=== PATIENT | female | born 1990 | race Asian ===

== ENCOUNTER 2016-04-06 17:43 | Emergency (ER) | payer MEDICAID, OTHER ==
[~2016-04-06] VITALS: Wt 54.6 kg
[~2016-04-06 17:43] MED LIST: LORA1TAB PO
--- NOTE | 2016-04-06 19:51 | ERD ---
ER Documentation Chief Complaint Date/Time DATE: 04/06/16 TIME: 19:49 Chief Complaint VAG BLEED EARLY FOR THE PAST FEW DAYS. NO PAIN. NO DYSURIA HPI This is a female with history of anxiety presenting to the emergency room complaining of vaginal spotting for the past few days. Patient states that it is brown to bright red discharge, it is minimal and does not soil a pad. Patient denies any pelvic pain, fevers, dysuria. Patient states that her last menstrual period started on the lasted for about a week. Patient states that she has an [facility]OW[facility] Dr. Mora who she followed up with today in which they referred her here for a full workup. ROS All systems reviewed and are negative except as per history of present illness. Medications Home Meds Active Scripts Lorazepam* (Lorazepam*) 1 Mg Tablet, 1 MG PO Q8H Y for ANXIETY, #10 TAB Prov:ELIOT ADAIR PA-C 11/04/15 Lorazepam* (Lorazepam*) 1 Mg Tablet, 1 MG PO DAILY for ANXIETY, #10 TAB 0 Refills Prov:MERRY THRASHER PA-C 08/15/15 Allergies Allergies: Coded Allergies: No Known Allergy (Unverified , 05/24/15) PMhx/Soc Medical and Surgical Hx: pt denies Medical Hx History of Surgery: No Anesthesia Reaction: No Hx Neurological Disorder: No Hx Respiratory Disorders: No Hx Cardiac Disorders: No Hx Psychiatric Problems: Yes (Anxiety) Hx Miscellaneous Medical Probl: No Hx Alcohol Use: Yes Hx Substance Use: No Hx Tobacco Use: No Smoking Status: Never smoker Physical Exam Vitals Vital Signs Date Time Temp Pulse Resp B/P Pulse Ox O2 Delivery O2 Flow Rate FiO2 04/06/16 21:32 98.2 64 16 107/67 100 Room Air 04/06/16 17:46 98.8 80 20 125/56 99 Physical Exam General: well-developed/well-nourished, in no apparent distress, non-toxic appearing HENT: NC/AT Eyes: Conjunctiva normal Neck: Supple Pulm: CTA bilaterally, normal breathing CV: Normal S1S2 GI: Soft, non-distended, normal bowel sounds, nontender Back: No midline tenderness, no masses, No CVAT Ext: No clubbing, cyanosis, or edema Neuro: Alert and orientated Skin: intact, normal turgor Psych: Clinically anxious Result Diagram: 04/06/16 1930 Results 24 hrs Laboratory Tests Test 04/06/16 19:30 04/06/16 20:56 Basophils # 0.010^3/ul Basophils % 0.5% Beta HCG, Quantitative 249.8mIU/ml Eosinophils # 0.110^3/ul Eosinophils % 1.2% Hematocrit 37.1% Hemoglobin 12.6g/dl Lymphocytes # 1.810^3/ul Lymphocytes % 30.9% Mean Corpuscular Hemoglobin 30.6pg Mean Corpuscular Hemoglobin Concent 33.9g/dl Mean Corpuscular Volume 90.5fl Mean Platelet Volume 7.4fl Monocytes # 0.310^3/ul Monocytes % 6.0% Neutrophils # 3.510^3/ul Neutrophils % 61.4% Nucleated Red Blood Cells # 0.010^3/ul Nucleated Red Blood Cells % 0.0/100WBC Platelet Count 55813^3/UL Red Blood Count 4.1010^6/ul Red Cell Distribution Width 13.9% White Blood Count 5.710^3/ul Urine Bacteria MODERATE Urine Bilirubin NEGATIVE Urine Clarity SLIGHTLY CLOUDY Urine Color LT. YELLOW Urine Glucose NEGATIVE% Urine Hemoglobin 3+ Urine Ketones NEGATIVE Urine Leukocyte Esterase NEGATIVE Urine Microscopic RBC 0-2/HPF Urine Microscopic WBC 0-2/HPF Urine Nitrite NEGATIVE Urine Specific Webber 1.020 Urine Squamous Epithelial Cells MODERATE Urine Total Protein NEGATIVE Urine Urobilinogen 0.2 E.U./dL Urine pH 7.0 Procedures/MDM This is a female with history of anxiety presenting to the emergency room complaining of vaginal spotting without any pelvic pain or the past few days. Patient states that her last menstrual period started on March 12, patient had a positive urinary test at the [facility] clinic and she was referred here for further evaluation mentioned. Lab work was drawn. CBC did not show any evidence of leukocytosis or anemia. Beta hCG was 250. UA did not show any evidence of hemoglobin or urinary tract infection. OB ultrasound was done and radiologist stated: No intrauterine seen. Trace fluid in the endocervical canal. Small amount of free fluid in cul-de-sac. Left ovary not seen. No ectopic seen. Differential diagnosis includes early intrauterine , spontaneous and ectopic . Correlation with serial quantitative beta HCGs and follow-up ultrasound is recommended. My differentials include but not limited to early or spontaneous . Low suspicion for ectopic , molar , ovarian torsion , appendicitis, cholecystitis, pancreatitis, obstruction, pyelonephritis due to diagnostic testing and physical examination. Disposition: hemodynamically stable. Diagnostic testing has been given to patient, I have discussed with patient that she needs to follow-up in 2 days to trend her beta-hCG levels to see if her is viable. Discussed to follow-up with an OB-PATTERN MAKER. Discussed to return to the ED for any worsening signs or symptoms. Patient understood and agreed with this plan. Departure Diagnosis: Primary Impression: Vaginal bleeding in patient at less than 20 weeks gestation Condition: Stable MANUEL GAUTHIER PA-C Apr 06, 2016 19:51
[2016-04-06 19:52] LABS: BASOPHILS % 0.5 % (0.0-2.0); EOSINOPHILS # 0.1 10^3/ul (0.0-0.5); EOSINOPHILS % 1.2 % (0.0-7.0); HEMATOCRIT 37.1 % (37.0-47.0); HEMOGLOBIN 12.6 g/dl (12.0-16.0); LYMPHOCYTES # 1.8 10^3/ul (0.8-2.9); LYMPHOCYTES % 30.9 % (15.0-51.0); MEAN CORPUSCULAR HEMOGLOBIN 30.6 pg (29.0-33.0); MEAN CORPUSCULAR HGB CONC 33.9 g/dl (32.0-37.0); MEAN CORPUSCULAR VOLUME 90.5 fl (82.0-101.0); MEAN PLATELET VOLUME 7.4 fl (7.4-10.4); MONOCYTE # 0.3 10^3/ul (0.3-0.9); NEUTROPHIL # 3.5 10^3/ul (1.6-7.5); NEUTROPHILS % 61.4 % (39.0-77.0); PLATELET COUNT 234 10^3/UL (140-440); RED CELL DISTRIBUTION WIDTH 13.9 % (11.5-14.5); UNCORRECTED WBC 5.7 10^3/ul (4.8-10.8); WHITE BLOOD COUNT 5.7 10^3/ul (4.8-10.8)
[2016-04-06 19:53] LABS: CONDITION 1
--- NOTE | 2016-04-06 20:05 | RADRPT ---
PROCEDURE: US OB. CLINICAL INDICATION: . Vaginal bleeding, spotting per patient. Clinical estimated gestat ional age is 3 weeks 4 days with estimated date of delivery 12/17/2016 TECHNIQUE: Transabdominal and transvaginal imaging of the gravid uterus was performed. Images are reviewed on a high-resolution PACS workstation. COMPARISON: None available FINDINGS: No intrauterine seen. The thickness of the endometrium equals 4.7 mm. Nabothian cysts in cervix. Trace fluid in the endocervical canal. The right ovary measures 3 x 1.7 x 1.6 cm and is unremarkable. The left ovary is not seen. No adnexal mass is seen. Small amount of free fluid in c ul-de-sac. IMPRESSION: No intrauterine seen. Trace fluid in the endocervical canal. Small amount of free fluid in cul-de-sac. Left ovary not seen. No ectopic seen. Differential diagnosis includes early intrauterine , spontaneous and ectopic . Correlation with serial quantit ative beta HCGs and follow-up ultrasound is recommended. RPTAT: HJES .De Perez MD, MD Date Time Electronically viewed and signed by .De Perez MD, MD on 04/06/2016 20:05 .S/
[2016-04-06 21:13] LABS: ADD UMIC YES; URINE BILIRUBIN (Dip) NEGATIVE (NEGATIVE); URINE BLOOD (Dip) 3+ (NEGATIVE); URINE COLOR LT. YELLOW (YELLOW); URINE GLUCOSE (Dip) NEGATIVE (NEGATIVE); URINE KETONES (Dip) NEGATIVE (NEGATIVE); URINE LEUKOCYTE ESTERASE (Dip) NEGATIVE (NEGATIVE); URINE NITRITE (Dip) NEGATIVE (NEGATIVE); URINE TOTAL PROTEIN (Dip) NEGATIVE (NEGATIVE); URINE UROBILINOGEN (Dip) 0.2 E.U./dL (0.1-1.0)
[2016-04-06 21:20] LABS: SQUAMOUS EPITHELIAL CELL,UR MODERATE; URINE RBCS 0-2 /HPF (0)
[2016-04-06 21:21] LABS: BACTERIA,URINE MODERATE
[2016-04-06 21:32] VITALS: BP 107/67; PULSE 64; RESP 16; TEMP 98.2
== END 2016-04-06 21:33 | disposition left against medical advice (07) ==
LOC: FTE 17:43
DX: O20.9 Hemorrhage in early pregnancy, unspecified (principal); Z3A.00 Weeks of gestation of pregnancy not specified
CPT/HCPCS: 36415; 76801; 76817; 81001; 84702; 85025; 86900; 86901; Z7502; 81003

== ENCOUNTER 2016-04-13 23:36 | Emergency (ER) | payer MEDICAID ==
[~2016-04-13] VITALS: Ht 170.2 cm; Wt 52.4 kg
[2016-04-13 23:39] VITALS: Ht 170.2 cm; Wt 52.4 kg
--- NOTE | 2016-04-14 02:03 | ERD ---
ER Documentation Chief Complaint Date/Time DATE: 04/14/16 TIME: 02:01 Chief Complaint 3-4 WKS . HERE FOR VAG BLEED 1 WK AGO. FOLLOW UP LABS HPI 26-year-old female presents here in emergency department for complaints of vaginal spotting started again today. Patient was seen here in emergency department one week ago, was told to possibly having early or early miscarriage, the bleeding improved so she did not return in 2 days, now she is having spotting again. Last menstruation was 03/12/2016. 2 para 1 0. Patient denies any flank pain. Patient denies any fever or chills. Patient denies any abdominal pain. ROS All systems reviewed and are negative except as per history of present illness. Medications Home Meds Active Scripts Lorazepam* (Lorazepam*) 1 Mg Tablet, 1 MG PO Q8H Y for ANXIETY, #10 TAB Prov:ELIOT ADAIR PA-C 11/04/15 Lorazepam* (Lorazepam*) 1 Mg Tablet, 1 MG PO DAILY for ANXIETY, #10 TAB 0 Refills Prov:MERRY THRASHER PA-C 08/15/15 Allergies Allergies: Coded Allergies: No Known Allergy (Unverified , 05/24/15) PMhx/Soc History of Surgery: No Anesthesia Reaction: No Hx Neurological Disorder: No Hx Respiratory Disorders: No Hx Cardiac Disorders: No Hx Psychiatric Problems: Yes (Anxiety) Hx Miscellaneous Medical Probl: No Hx Alcohol Use: Yes Hx Substance Use: No Hx Tobacco Use: No FmHx Family History: No coronary disease, No diabetes, No other Physical Exam Vitals Vital Signs Date Time Temp Pulse Resp B/P Pulse Ox O2 Delivery O2 Flow Rate FiO2 04/13/16 23:39 97.0 70 16 110/70 99 Physical Exam GENERAL: The patient is well developed and appropriate for usual state of health, in no apparent distress. CHEST: Clear to auscultation bilaterally. There are no rales, wheezes or rhonchi. HEART: Regular rate and rhythm. No murmurs, clicks, rubs or gallops. No S3 or S4. ABDOMEN: Soft, nontender and nondistended. Good bowel sounds. No rebound or guarding. No gross peritonitis. No gross organomegaly or masses. No Neville sign or McBurney point tenderness. BACK: No midline or flank tenderness. EXTREMITIES: Equal pulses bilaterally. There is no peripheral clubbing, cyanosis or edema. No focal swelling or erythema. Full range of motion. Grossly neurovascularly intact. NEURO: Alert and oriented. Cranial nerves 2-12 intact. Motor strength in all 4 extremities with 5/5 strength. Sensation grossly intact. Normal speech and gait. SKIN: There is no apparent rash or petechia. The skin is warm and dry. HEMATOLOGIC AND LYMPHATIC: There is no evidence of excessive bruising or lymphedema. No gross cervical, axillary, or inguinal lymphadenopathy. Vaginal: Refused. Result Diagram: 04/14/16 0221 Results 24 hrs Laboratory Tests Test 04/14/16 02:21 Basophils # 0.010^3/ul Basophils % 0.5% Beta HCG, Quantitative 48.7mIU/ml Eosinophils # 0.210^3/ul Eosinophils % 2.8% Hematocrit 38.3% Hemoglobin 12.9g/dl Lymphocytes # 2.710^3/ul Lymphocytes % 44.4% Mean Corpuscular Hemoglobin 30.2pg Mean Corpuscular Hemoglobin Concent 33.7g/dl Mean Corpuscular Volume 89.7fl Mean Platelet Volume 9.7fl Monocytes # 0.410^3/ul Monocytes % 7.3% Neutrophils # 2.710^3/ul Neutrophils % 44.7% Nucleated Red Blood Cells # 0.010^3/ul Nucleated Red Blood Cells % 0.0/100WBC Platelet Count 23524^3/UL Red Blood Count 4.2710^6/ul Red Cell Distribution Width 12.8% Urine Bilirubin NEGATIVE Urine Clarity CLEAR Urine Color LT. YELLOW Urine Glucose NEGATIVE% Urine Hemoglobin NEGATIVE Urine Ketones NEGATIVE Urine Leukocyte Esterase NEGATIVE Urine Nitrite NEGATIVE Urine Specific Maynard 1.020 Urine Total Protein NEGATIVE Urine Urobilinogen 0.2 E.U./dL Urine pH 7.0 White Blood Count 6.010^3/ul PROCEDURE: ULTRASOUND PELVIS - TRANSABDOMINAL ONLY CLINICAL INDICATION: 26-year-old female with spotting. TECHNIQUE: Multiple sonographic images of the pelvis were obtained utilizing a transabdominal technique. The the patient refused endovaginal imaging. The images were reviewed on a PACS workstation. COMPARISON: None. FINDINGS: The uterus is visualized and measures 3.3 x 1.9 x 2.0 cm. The endometrial echo complex is unremarkable however was not measured. There is no sonographic evidence for an intrauterine gestation. There is no evidence for free fluid. The right ovary has a normal echotexture and measures 3.4 x 1.7 x 2.2 cm. The left ovary has a normal echotexture and measures 3.3 x 1.9 x 2.0 cm. There is flow within the ovaries bilaterally. No adnexal masses are noted. IMPRESSION: No sonographic evidence for an intrauterine gestation. If the patient has a positive test, an ectopic cannot be excluded. Clinical correlation is necessary. .Ruben Alves MD, Date Time Electronically viewed and signed by .Ruben Alves MD, on 04/14/2016 04:08 .M/ CC: CHAKA DAVE CABLE TECHNICIAN Procedures/MDM Medical Decision Making: Patients vaginal bleeding is most likely consistent of possible spontaneous . Patient does not show any evidence of hypovolemic shock. Patients hemoglobin and hematocrit is stable. There is low suspicion for ectopic . BRUCE results show no viable BetaHCG Quantitative is very low consistent to miscarriage The patient is Rh+, does not need RhoGAM this time. There is no signs of symptoms of dehydration. There is low suspicion for sepsis. Patient appears well and is hemodynamically stable. Disposition: Eloped prior to ultrasound. Condition: Stable Instructions: Patient is advised to do bed rest, avoid heavy lifting, and avoid having sex until cleared by OB doctor. Patient is advised to follow up with OB doctor or here at the ER in 48 hours for reevaluation of symptoms, repeat beta HCG quantitative and ultrasound. Patient is advised that is symptoms are worst, severe bleeding, dizziness, severe abdominal pain, fever, worst signs and symptoms to return to the emergency department immediately. Departure Diagnosis: Primary Impression: Spontaneous Condition: Stable Additional Instructions: Patient is advised to do bed rest, avoid heavy lifting, and avoid having sex until cleared by OB doctor. Patient is advised to follow up with OB doctor or here at the ER in 48 hours for reevaluation of symptoms, repeat beta HCG quantitative and ultrasound. Patient is advised that is symptoms are worst, severe bleeding, dizziness, severe abdominal pain, fever, worst signs and symptoms to return to the emergency department immediately. CHAKA DAVE NP Apr 14, 2016 02:03
[2016-04-14 02:33] LABS: ADD SCAN DIFF NO
[2016-04-14 02:40] LABS: ADD UMIC NO; URINE BILIRUBIN (Dip) NEGATIVE (NEGATIVE); URINE BLOOD (Dip) NEGATIVE (NEGATIVE); URINE COLOR LT. YELLOW (YELLOW); URINE GLUCOSE (Dip) NEGATIVE (NEGATIVE); URINE KETONES (Dip) NEGATIVE (NEGATIVE); URINE LEUKOCYTE ESTERASE (Dip) NEGATIVE (NEGATIVE); URINE NITRITE (Dip) NEGATIVE (NEGATIVE); URINE TOTAL PROTEIN (Dip) NEGATIVE (NEGATIVE); URINE UROBILINOGEN (Dip) 0.2 E.U./dL (0.1-1.0)
[2016-04-14 02:42] LABS: BASOPHILS % 0.5 % (0.0-2.0); EOSINOPHILS # 0.2 10^3/ul (0.0-0.5); EOSINOPHILS % 2.8 % (0.0-7.0); HEMATOCRIT 38.3 % (37.0-47.0); HEMOGLOBIN 12.9 g/dl (12.0-16.0); LYMPHOCYTES # 2.7 10^3/ul (0.8-2.9); LYMPHOCYTES % 44.4 % (15.0-51.0); MEAN CORPUSCULAR HEMOGLOBIN 30.2 pg (29.0-33.0); MEAN CORPUSCULAR HGB CONC 33.7 g/dl (32.0-37.0); MEAN CORPUSCULAR VOLUME 89.7 fl (82.0-101.0); MEAN PLATELET VOLUME 9.7 fl (7.4-10.4); MONOCYTE # 0.4 10^3/ul (0.3-0.9); MONOCYTES % 7.3 % (0.0-11.0); NEUTROPHIL # 2.7 10^3/ul (1.6-7.5); NEUTROPHILS % 44.7 % (39.0-77.0); PLATELET COUNT 244 10^3/UL (140-415); RED BLOOD COUNT 4.27 10^6/ul (4.20-5.40); RED CELL DISTRIBUTION WIDTH 12.8 % (11.5-14.5)
--- NOTE | 2016-04-14 04:09 | RADRPT ---
PROCEDURE: ULTRASOUND PELVIS - TRANSABDOMINAL ONLY CLINICAL INDICATION: 26-year-old female with spotting. TECHNIQUE: Multiple sonographic images of the pelvis were obtained utilizing a transabdominal tech nique. The the patient refused endovaginal imaging. The images were reviewed on a PACS workstation. COMPARISON: None. FINDINGS: The uterus is visualized and measures 3.3 x 1.9 x 2.0 cm. The endometrial echo complex is unremarkab le however was not measured. There is no sonographic evidence for an intrauterine gestation. There i s no evidence for free fluid. The right ovary has a normal echotexture and measures 3.4 x 1.7 x 2.2 cm. The left ovary has a normal echotexture and measures 3.3 x 1.9 x 2.0 cm. There is flow within t he ovaries bilaterally. No adnexal masses are noted. IMPRESSION: No sonographic evidence for an intrauterine gestation. If the patient has a positive test , an ectopic cannot be excluded. Clinical correlation is necessary. .Ruben Alves MD, Date Time Electronically viewed and signed by .Ruben Alves MD, on 04/14/2016 04:08 .M/
== END 2016-04-14 04:35 | disposition left against medical advice (07) ==
LOC: FTE 23:36 → E/R 04-14 04:35
DX: O20.0 Threatened abortion (principal); Z3A.01 Less than 8 weeks gestation of pregnancy
CPT/HCPCS: 36415; 76801; 81003; 84702; 85025; Z7502

== ENCOUNTER 2017-05-27 10:15 | Emergency (ER) | END 2017-05-27 13:39 | disposition home or self-care (01) ==